=== PATIENT | male | born 1945 | race Caucasian/White ===

== ENCOUNTER → 2022-09-12 10:29 | Outpatient (BNVA) | payer MEDICARE, SELFPAY | PROVIDERS: PCP Internal Medicine Interventional Cardiology; Visit Provider Physician Assistant | DX: Z12.11 Encounter for screening for malignant neoplasm of colon (principal); K59.09 Other constipation; Z78.9 Other specified health status; Z86.010 Personal history of colon polyps | CPT/HCPCS: 99202 ==

== ENCOUNTER 2022-12-19 11:56 | Day surgery (SDC) | payer MEDICARE, SELFPAY ==
[2022-12-15 16:10] VITALS: BMI 25.1
[2022-12-19 12:31] VITALS: BP 169/83; PULSE 68; RESP 16; TEMP 36.6; O2SAT 93; BMI 25.1
--- NOTE | 2022-12-19 13:07 | MHC.SHP ---
Pre-Procedural Eval Section A Date of Service: 12/19/22 The patient is an INPATIENT: No The History & Physical has been completed within 30 days and I have reviewed it.: No Section B Chief Complaint: surveillance for colon polyps, ch constipation Relevant Social History: Tobacco Use ( former smoker) Present Medications: see Short Stay Collaborative assessment Medical History: Significant History ( hypertension, chronic bronchitis, sleep apnea) History of Previous Operations: Relevant previous surgery/procedure and date(s) (History of carotid endarterectomy History of esophagogastroduodenoscopy (EGD) Hx of colonoscopy Hx of hammer toe correction Hx of laparoscopy) Allergies: Allergies Allergy/AdvReac Type Severity Reaction Status Date / Time Isothiazolinones Allergy Severe rash,bliste Verified 12/15/22 15:57 [ISOTHIAZOLINONES] rs [id number] Allergy Severe rash,bliste Uncoded 12/15/22 15:57 rs Review of Systems Sugical H&P ROS: Negative: Constitution, Cardiovascular and Respiratory and Yes, Specify: Gastrointestinal ( constipation) Exam Surgical H&P Exam: Normal: Heart, Normal: Lungs, Normal: Extremities and Normal: Abdomen Plan Diagnosis/Plan: Unchanged I have reviewed the history and physical and performed a pertinent physical examination on my patient. No changes have occurred unless specified. Time Spent With Patient Time: Total time managing care of this patient today ____ minutes.
--- NOTE | 2022-12-19 13:09 | P.CONAN_ITS ---
FORM[facility] Active Problems Active Problems: All Active Problems (Updated 12/15/22 @ 16:16 by Danielle Preciado RN) Chronic constipation (Acute) Poor historian (Acute) Encounter for screening colonoscopy (Acute) History of colon polyps (Acute) Past Medical History Medical History (Updated 12/15/22 @ 16:16 by Danielle Preciado RN) Anxiety Chronic bronchitis Depression Elevated cholesterol History of Hobbs-Vivek toxic epidermal necrolysis overlap syndrome HTN (hypertension) Hx of angioedema Hx of cataract Left carotid artery stenosis MICHAEL (obstructive sleep apnea) Family History Family history of problems with anesthesia: No Surgical History Surgical History (Updated 12/15/22 @ 16:06 by Danielle Preciado RN) History of carotid endarterectomy History of esophagogastroduodenoscopy (EGD) Hx of colonoscopy Hx of hammer toe correction Hx of laparoscopy History of Problems with Anesthesia: No Social History Social History (Updated 12/15/22 @ 16:10 by Danielle Preciado RN) Household Members: Family Household Members Other:: daughter Housing: House Are you a primary direct care supervisor to a significant other at home: No Do you presently have visiting nurse or other home services: No Alcohol intake: never Patient Tobacco Use Status: Former Tobacco user Quit Date: Tobacco use type: Cigarette Use of substances other than those prescribed or required for medical reasons: No Have you been hit, kicked, punched, or otherwise hurt by someone within the past year? If so, by whom?: No Are you DNR?: No Advance Directives: No Advance Directives Information Provided: Yes Advance Directives on File: No Recently lost weight without trying: No Nutrition Risks: Surgical patient >75years Meds Allergies Allergy/AdvReac Type Severity Reaction Status Date / Time Isothiazolinones Allergy Severe rash,bliste Verified 12/15/22 15:57 [ISOTHIAZOLINONES] rs [id number] Allergy Severe rash,bliste Uncoded 12/15/22 15:57 rs Home Medications Medication Instructions Recorded Confirmed Last Taken Type finasteride 5 mg tablet 5 mg PO BEDTIME 09/08/22 12/15/22 Unknown History fluticasone propionate 50 1 spray intranasal BEDTIME 09/08/22 12/15/22 Unknown History mcg/actuation nasal spray,suspension loratadine 10 mg tablet (Claritin) 10 mg PO DAILY PRN Allergy Symptoms 09/08/22 12/15/22 Unknown History PreserVision AREDS 12/15/22 Unknown History amlodipine 5 mg tablet 5 mg PO DAILY 12/15/22 12/19/22 12/19/22 History coenzyme Q10-red yeast rice 25 cap PO 12/15/22 Unknown History mg-600 mg capsule rosuvastatin 10 mg tablet 10 mg PO DAILY 12/15/22 12/15/22 Unknown History tamsulosin 0.4 mg capsule 0.4 mg PO DAILY 12/15/22 12/15/22 Unknown History Exam Exam Date and Time: December 19, 2022 1309 Height,Weight and Vital Signs: Height 5 ft 8 in Weight 74.843 kg Last Vital Signs Temp 97.8 F 12/19/22 12:31 Pulse 68 12/19/22 12:31 Resp 16 12/19/22 12:31 BP 169/83 H 12/19/22 12:31 Pulse Ox 93 12/19/22 12:31 O2 Del Method Room Air 12/19/22 12:31 Airway Mallampati Class: II TM Dist: >3cm Neck ROM: Full Heart: rrr Lungs: cta Assessment and Plan Assessment Anesthesia Assessment: Anesthesia Plan Discussed and Chart Reviewed Final Anesthetic Review Family History of Problems with Anesthesia: No History of Problems with Anesthesia: No NPO: Yes ASA Class: III Final Preanesthetic Review: No Changes in Pt Med Stat, Meds/Allgs Chart Reviewed and Consent Obtained/Reviewed Patient Risk: Intermediate Procedure Risk: Intermediate Anesthetic Plan Anesthetic Plan: MAC: Disposition: Standard PACU
--- NOTE | 2022-12-19 13:14 | W.PM.OPN ---
Operative Note Operative Note Date of Service: 12/19/22 Narrative: COLONOSCOPY TILL CECUM WITH BIOPSIES AND SNARE POLYPECTOMY Pre-op diagnosis: surveillance for colon polyps, chronic constipation (2013 Colonoscopy was performed by Dr Savage and a 5 mm tubular adenoma was removed at 80 cms) Post-op diagnosis:? colon polyps, diverticulosis, hemorrhoids Endoscopist:? Michael Singh MD Anesthesia:?MAC Consent: Indications for the procedure and potential complications of bleeding, perforation, reaction to medications and missed diagnosis were discussed with the patient and informed consent was obtained. Instrument: Olympus PCF H 190 L variable stiffness pediatric colonoscope Monitoring: Vital signs and clinical assessment, intermittent blood pressure monitoring, continuous EKG monitoring, Pulse oximetry and Carbon Dioxide monitoring were done throughout the procedure. Please see anesthesia flowsheet. Colon withdrawl time was 28 minutes. Procedure: The patient was placed in the left lateral decubitis position and pre-procedure medications were administered. After a digital rectal examination of the ano-rectum, the video colonoscope was inserted into the rectum and advanced through the colon to the cecum. The colonoscope was slowly withdrawn in a retrograde panoramic fashion and the colon mucosa was carefully examined including a retroflexed view of the rectum. Findings and interventions are described below. Procedure Difficulty: Without difficulty Findings: Terminal Ileum: Not evaluated Cecum: Normal Ascending Colon: Normal Transverse Colon: A 12-15 mm sessile polyp at 80 cms - removed with hot snare. Two 9 - 12 mm sessile polyps - removed with a hot and a cold snare Descending Colon: A 10-12 mm sessile polyp - removed with a hot snare Moderate diverticulosis Sigmoid Colon: Two 7-8 mm sessile polyps - removed with a cold biopsy. Moderate diverticulosis Rectum: A few 5 to 10 mm diminutive appearing polyps - one polyp was removed with a cold bx Ano-rectum: Moderate internal hemorrhoids Colon preparation: Good Impression and Post Procedure Diagnosis: Colonoscopy Findings: Seven small to medium sized polyps removed Moderate diverticulosis seen in the left colon Moderate hemorrhoids on retroflexed exam. Plan: Await pathology results Patient has an appointment on 01/09/23 in the [facility] with TNO Cano. Repeat Colonoscopy interval based on path results - in 3 years if polyps are adenomatous and 5 years if polyps are hyperplastic (due to a hx of adenomatous colon polyps). Above findings were reviewed with the patient and colon polyps and diverticulosis handouts were given in the discharge area BIOPSIES: ?A) Polyps Transverse Colon 80cm - Tubular adenomas (two, 1 is completely excised); negative for high-grade dysplasia and carcinoma ?B) Polyps Descending Colon - Tubular adenoma, one; negative for high-grade dysplasia and carcinoma.? C) Polyps Sigmoid Colon - Hyperplastic polyp, one. ?D) Polyp Rectum - Polypoid colonic mucosa with no specific change; negative for adenomatous dysplasia. Letter sent advising repeat colonoscopy in 3 years.
[2022-12-19 14:05] VITALS: BP 130/69; PULSE 61; RESP 16; TEMP 36.3; O2SAT 96
[2022-12-19 14:20] VITALS: BP 169/80; PULSE 58; RESP 16; O2SAT 96
[2022-12-19 14:35] VITALS: BP 177/76; PULSE 54; RESP 16; TEMP 36.4; O2SAT 96
== END 2022-12-19 14:59 | disposition home or self-care (01) ==
PROVIDERS: PCP Obstetrics & Gynecology; Visit Provider Internal Medicine Gastroenterology
PROC: 0DJD8ZZ Inspection of Lower Intestinal Tract, Via Natural or Artificial Opening Endoscopic (ICD-10-PCS; CPT 45378; principal; 2022-12-19 13:20)
DX: Z12.11 Encounter for screening for malignant neoplasm of colon (principal); D12.3 Benign neoplasm of transverse colon; D12.4 Benign neoplasm of descending colon; K62.1 Rectal polyp; K57.30 Diverticulosis of large intestine without perforation or abscess without bleeding; K64.8 Other hemorrhoids; Z86.010 Personal history of colon polyps; K59.09 Other constipation; I10 Essential (primary) hypertension; E78.5 Hyperlipidemia, unspecified; G47.33 Obstructive sleep apnea (adult) (pediatric); Z99.89 Dependence on other enabling machines and devices; Z87.891 Personal history of nicotine dependence; Z79.899 Other long term (current) drug therapy
CPT/HCPCS: 45385; 45380; 88305

== ENCOUNTER → 2022-12-19 11:56 | Outpatient (BNV) | payer MEDICARE, SELFPAY | PROVIDERS: PCP Obstetrics & Gynecology; Visit Provider Internal Medicine Gastroenterology | DX: Z12.11 Encounter for screening for malignant neoplasm of colon (principal); K59.04 Chronic idiopathic constipation; K57.30 Diverticulosis of large intestine without perforation or abscess without bleeding; K64.8 Other hemorrhoids; D12.3 Benign neoplasm of transverse colon; D12.4 Benign neoplasm of descending colon; D12.5 Benign neoplasm of sigmoid colon; D12.8 Benign neoplasm of rectum | CPT/HCPCS: 45380; 45385 ==